=== PATIENT | female | born 1990 | race African-American/Black ===

== ENCOUNTER 2022-07-23 16:38 | Inpatient (IN) | payer OTHER, MEDICAID, SELFPAY ==
[2022-07-23 16:49] VITALS: BP 140/80; PULSE 80
--- NOTE | 2022-07-23 16:53 | PC.NURSE ---
called to triage. per registration in bathroom.
[2022-07-23 17:01] VITALS: BP 137/98; PULSE 74; RESP 18; TEMP 36.4; O2SAT 97; BMI 32.7
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
--- NOTE | 2022-07-23 18:00 | ED_ITS ---
HPI - General Adult General Chief complaint: General Medical <ISRA Grace - Last Filed: 07/23/22 22:35> Stated complaint: ANXIETY <ISRA Grace - Last Filed: 07/23/22 22:35> Time Seen by Provider: 07/23/22 17:59 <ISRA Grace - Last Filed: 07/23/22 22:35> Source: patient <ISRA Grace - Last Filed: 07/23/22 22:35> Mode of arrival: ambulatory <ISRA Grace Last Filed: 07/23/22 22:35> Limitations: no limitations and other (vague historian ) <ISRA Grace Last Filed: 07/23/22 22:35> History of Present Illness HPI narrative: 32-year-old female with history of asthma presents to the emergency room with complaints of anxiety and needing refill on her asthma inhaler. Patient states she was recently kicked out of [facility] for lying about drug use. Patient states that she is depressed and is experiencing auditory hallucinations. Patient states she does see a therapist, but does not see a psychiatrist. Patient is speaking with an organized thought process. Appears paranoid upon history taking denies SI and HI <ISRA Grace Last Filed: 07/23/22 22:35> Related Data Home medications: Home Medications Medication Instructions Recorded Confirmed albuterol sulfate 90 mcg/actuation 1 - 2 puff inhalation Q6H PRN 07/23/22 07/23/22 aerosol inhaler (ProAir HFA) wheezing <ISRA Grace - Last Filed: 07/23/22 22:35> Allergies/adverse reactions: Allergies Allergy/AdvReac Type Severity Reaction Status Date / Time chlorpromazine AdvReac Hives Verified 07/23/22 20:39 [From Thorazine] haloperidol [From Haldol] AdvReac Hives Verified 07/23/22 20:38 <ISRA Grace Last Filed: 07/23/22 22:35> Review of Systems Review of Systems: Constitutional : No Weight loss, No Fever, No Chills, No Fatigue, No Malaise ENT/Mouth : No sore throat, No Rhinorrhea Eyes: No Eye Pain, No Swelling, No Redness Cardiovascular : No Chest Pain, No SOB, No Dyspnea on Exertion, No Orthopnea, No Edema, No Palpitations Respiratory : No Cough, No Sputum, No Wheezing Gastrointestinal : No Nausea, No Vomiting, No Diarrhea, No Constipation, No abdominal Pain, No Hematochezia, No Melena Genitourinary : No Dysuria, No Urinary Frequency, No Hematuria, Musculoskeletal : No joint pain, No Myalgias, No Joint Swelling Skin : No Skin Lesions, No rash Neuro : No Weakness, No Numbness, No Dizziness, No Headache Psych : + Anxiety/Panic, No Depression, No SI/HI All other systems reviewed and are negative <ISRA Grace - Last Filed: 07/23/22 22:35> Yes all other systems are reviewed and are negative <ISRA Grace - Last Filed: 07/23/22 22:35> [facility] Past Medical History Attestation statement: The following information was validated with the patient. <ISRA Grace - Last Filed: 07/23/22 22:35> Source: old records reviewed and nursing notes reviewed <ISRA Grace - Last Filed: 07/23/22 22:35> Social History Social History: Social History Advance Directives: No Advance Directives Information Provided: No Patient : No <ISRA Grace - Last Filed: 07/23/22 22:35> Physical Exam ED Vital Signs: Vital Signs - 24 hr 07/23/22 17:01 07/24/22 06:05 Temperature 97.5 F Pulse Rate 74 Respiratory Rate 18 16 Blood Pressure 137/98 H Pulse Oximetry 97 Oxygen Delivery Method Room Air BMI result Body Mass Index 32.7 vss <ISRA Grace - Last Filed: 07/23/22 22:35> Vital Signs - 24 hr 07/23/22 17:01 07/24/22 06:05 Temperature 97.5 F Pulse Rate 74 Respiratory Rate 18 16 Blood Pressure 137/98 H Pulse Oximetry 97 Oxygen Delivery Method Room Air BMI result Body Mass Index 32.7 <Justa Beavers MD - Last Filed: 07/24/22 07:06> Appearance: Alert.? Oriented X3.? No acute distress.? Head: Normocephalic, atraumatic, no step-offs or deformities Eyes: Pupils equal, round and reactive to light.? ENT: Pharynx normal.? Neck: Normal inspection.? Neck supple.? CVS: Normal heart rate and rhythm.? Pulses normal.? Respiratory: No respiratory distress.? Breath sounds normal.? Abdomen: Soft and nontender.? Skin: Skin warm and dry.? Normal skin color.? Normal skin turgor.? Extremities: No lower extremity edema.? No calf ttp. 5/5 strength to bilateral upper and lower extremities Neuro: Oriented X 3.? No motor deficit.? No sensory deficit. CN 2-12 intact <ISRA Grace - Last Filed: 07/23/22 22:35> Course Reevaluation(s) Reevaluation #1: Patient COVID negative. Refusing laboratory studies, urine. Pending [facility] evaluation. <ISRA Grace - Last Filed: 07/23/22 22:35> Time: 22:32 <ISRA Grace - Last Filed: 07/23/22 22:35> Reevaluation #2: Patient has been placed on a Section 12, currently inpatient bed search. Continues to refuse labs. At this time patient will be placed into physician observation to allow more time for inpatient psychiatric placement. At time observation was started patient common cooperative, refusing all labs, urine. <ISRA Grace - Last Filed: 07/23/22 22:35> Time: 22:33 <ISRA Grace - Last Filed: 07/23/22 22:35> Reevaluation #3: With stable vital signs, no event reported by the nurse last night, patient still refusing medical workup, under Section 12, patient expected to be admitted to M[facility]. Will continue physician observation until then. <Justa Beavers MD - Last Filed: 07/24/22 07:06> Time: 07:05 <Justa Beavers MD - Last Filed: 07/24/22 07:06> Medical Decision Making MDM Narrative Medical decision making narrative: 1802 32 year old female presents w/ anxiety, hallucinations and requesting a albuterol refill. Recently became homeless. Denies SI and HI PE- benign Plan- refill rx, will give a list of shelters in the area <ISRA Grace - Last Filed: 07/23/22 22:35> Medical Records Medical records reviewed: Yes I reviewed the patient's medical records. <ISRA Grace - Last Filed: 07/23/22 22:35> Lab Data Lab results reviewed: Yes I reviewed the patient's lab results. <ISRA Grace - Last Filed: 07/23/22 22:35> Labs: Lab Results 07/23/22 Range/Units 19:43 COVID-19 ([facility]) Negative (Negative) COVID-19 Clin Com See Note <ISRA Grace - Last Filed: 07/23/22 22:35> Lab Results 07/23/22 Range/Units 19:43 COVID-19 ([facility]OL) Negative (Negative) COVID-19 Clin Com See Note <Justa Beavers MD - Last Filed: 07/24/22 07:06> Critical Care Time Critical Care Time Critical Care Time: No <ISRA Grace - Last Filed: 07/23/22 22:35> Discharge Plan Discharge Clinical Impression: Cheli, Anxiety, Depression, Hallucinations <ISRA Grace - Last Filed: 07/23/22 22:35> Patient Disposition: Still a Patient <ISRA Grace - Last Filed: 07/23/22 22:35> Prescriptions: No Action albuterol sulfate [ProAir HFA] 90 mcg/actuation HFA aerosol inhaler 1 - 2 puff INHALATION Q6H PRN (Reason: wheezing) <ISRA Grace - Last Filed: 07/23/22 22:35>
--- NOTE | 2022-07-23 19:40 | PC.NURSE ---
Pt refusing lab draw at this time stating she needs to keep her blood in her own body . Agreeable to COVID swab.
--- NOTE | 2022-07-23 19:47 | PC.NURSE ---
[facility] referral completed/Sent/Receipt confirmed
[2022-07-23 20:06] LABS: COVID-19 Test Negative (Negative)
--- NOTE | 2022-07-23 20:53 | PC.NURSE ---
Patient refused lab draws and providing urine sample for second time, provider made aware, patient's thought content paranoid, will continue to monitor.
--- NOTE | 2022-07-24 05:53 | PC.NURSE ---
Patient slept through the night, no distress observed/reported, behavior confrontational and unpredictable, thought content paranoid, thought process coherent at time, continued to refuse to provide urine sample and blood draw, provider made aware, patient was assessed by [facility], patient engaged appropriately, disposition section 12 inpatient bed search, patient is pre-accepted to M[facility] per care team, med rec completed, patient not compliant with her fluphenazine since November of this year, will continue to monitor.
[2022-07-24 06:05] VITALS: RESP 16
--- NOTE | 2022-07-24 08:11 | PC.NURSE ---
t/w attempted to obtain morning vitals and labs from the night before and pt continues to refuse stating I go to a primary and don't need my blood drawn here, I have them done often and know what's going on in my body. RN aware.
[2022-07-24] MEDS: Acetaminophen 325 MG TABLET 650 MG PO (09:00)
--- NOTE | 2022-07-24 12:27 | PC.NURSE ---
Patient pacing hallway yelling at this nurse stating people are calling me a bitch, stop calling me a bitch This nurse offered patient something eat and drink and discussed patients feelings with her. This nurse reassured patient that no one was yelling at her. This patient then proceeded to state that her tax dollars pay my salary and that I needed to wait on her. Offered medication to help ease patients anxiety. Patient refused. Will continue to monitor.
[2022-07-24 13:25] VITALS: BP 155/89; PULSE 81; RESP 16; TEMP 37; O2SAT 98
[2022-07-24 14:19] LABS: MANUAL DIFF FLAG NO
[2022-07-24 14:35] LABS: Basophils Percent Auto 0.5 % (0-2); Eosinophils Absolute Auto 0.1 X10*3/uL (0.0-0.4); Eosinophils Percent Auto 1.1 % (0-4); Hematocrit 42.6 % (37.0-47.0); Hemoglobin 13.6 g/dl (12.0-16.0); Imm Gran Abs Auto 0.02 X10*3/uL (0.00-0.03); Imm Gran Pct Auto 0.3 % (0.0-0.4); Lymphocytes Percent Auto 27.2 % (20-40); Mean Corpuscular HGB Conc 31.9 g/dl (31.0-35.0); Mean Corpuscular Hemoglobin 25.1 pg (27.0-33.0); Mean Corpuscular Volume 78.7 fL (80.0-98.0); Mean Platelet Volume 11.4 fL (9.4-12.3); Monocytes Absolute Auto 0.5 X10*3/uL (0.1-1.2); Monocytes Percent Auto 7.3 % (2-11); Neutrophils Absolute Auto 4.7 x10*3/uL (2.0-8.3); Neutrophils Percent Auto 63.6 % (45-73); Platelet Count 248 X10*3/uL (160-400); Red Blood Count 5.41 X10*6/uL (4.20-5.50); White Blood Count 7.4 X10*3/uL (4.8-10.8)
[2022-07-24 14:36] LABS: Alanine Aminotransferase 13 U/L (0-31); Alkaline Phosphatase 53 U/L (39-117); Anion Gap 15 (12-20); Aspartate Amino Transferase 14 U/L (5-31); Bilirubin Direct 0.2 mg/dL (0.0-0.5); Bilirubin Total 0.6 mg/dL (0.0-1.0); Blood Urea Nitrogen 10 mg/dL (9-16); Calcium 8.9 mg/dL (8.4-10.2); Carbon Dioxide 25 mmol/L (22-29); Chloride 103 mmol/L (96-108); Creatinine Clr Calc Pharmacy 105.7; Estimated Glomerular Filt Rate > 60; Glucose Random 98 mg/dL (60-115); Lipase 29 U/L (8-78); Potassium 3.5 mmol/L (3.3-5.1); Sodium 139 mmol/L (135-145); Total Protein 6.7 g/dL (6.5-8.0)
[2022-07-24 14:56] LABS: Thyroid Stimulating Hormone 0.56 uIU/mL (0.32-4.0)
--- NOTE | 2022-07-25 04:06 | PC.ADMIT ---
Patient is a 32-year-old, Thai speaking, , single, adult woman presenting to from [facility] ED at approximately 2250. She is covid negative. Patient chose minimal participation in the admission interview, stating she wanted to just go to bed . Patient did sign a conditional voluntary agreement, but declined to sign any other legals. Patient has a history of asthma, and presented to the [facility] ED with complaints of anxiety and needing a refill on her asthma inhaler. ED further reports that she has been off of the prescribed medications Fluphenazine IM 25mg and PO 5mg since November 2021. She stated she was depressed and was experiencing auditory hallucinations. She denied SI and HI.? ? Per [facility] crisis report: Patient was at [facility] before being administratively discharged on 07/23/2022, due to threatening staff and patients, and acting with bizarre behaviors. Further history was unknown due to the patient not being able to provide information due to an angry, aggressive, manic state. Patient denied initial inhaler treatment. She retired to bed without incident.
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
[2022-07-25 10:38] VITALS: RESP 18
--- NOTE | 2022-07-25 14:06 | PC.NURSE ---
Patient given supplies to collect UA. Pt stated unable to provide sample today due to menses but will be able to provide a specimen tomorrow.
[2022-07-25] MEDS: Acetaminophen 325 MG TABLET 650 MG PO (17:09)
[2022-07-25 18:00] VITALS: BP 128/82; PULSE 82; RESP 16; TEMP 36.6; O2SAT 97
--- NOTE | 2022-07-25 20:45 | PC.NURSE ---
Pt is malodorous and refuses to shower. Pt continues to stay in the common areas and cause agitation on the unit. Refuses to take prn medication and also refuses redirection to stay in her room.
[2022-07-26 06:00] VITALS: RESP 18
[2022-07-26] MEDS: Albuterol Sulfate 90 MCG 8 GM INHALER INHALE (10:28)
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
[2022-07-26] MEDS: OLANZapine 10 MG VIAL IM (18:11)
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
[2022-07-27] MEDS: diphenhydrAMINE HCL 25 MG CAPSULE PO (13:30)
[2022-07-27] MEDS: fluPHENAZine decanoate 25 MG/ML 5 ML VIAL 50 MG IM (15:50)
--- NOTE | 2022-07-27 16:00 | PC.NURSE ---
Prolixin 50mg given IM to left Deltoid
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
[2022-07-28] MEDS: diphenhydrAMINE HCL 25 MG CAPSULE 50 MG PO (13:18)
== END 2022-07-28 15:17 | disposition home or self-care (01) | DRG 750 ==
LOC: HO.ED 22:35 → HO.PM5 07-24 13:03
PROVIDERS: Emergency Medicine; Physician Assistant; Admitting Provider Psychiatry & Neurology Psychiatry; Emergency Provider Student in an Organized Health Care Education/Training Program; Visit Provider Psychiatry & Neurology Psychiatry
DX: F25.9 Schizoaffective disorder, unspecified (principal); Z59.02 Unsheltered homelessness; J45.909 Unspecified asthma, uncomplicated; Z20.822 Contact with and (suspected) exposure to COVID-19; Z88.0 Allergy status to penicillin; Z79.899 Other long term (current) drug therapy
CPT/HCPCS: 36415; 80048; 80076; 83690; 84443; 85025; 87635; 99285; J2680